=== PATIENT | male | born 1990 | race Caucasian/White ===

== ENCOUNTER 2024-10-30 18:10 | Outpatient (REF) | payer BC, SELFPAY ==
[2024-10-30 21:36] LABS: HCT 46.5 % (40.0-50.0); HGB 16.1 g/dL (13.5-17.5); MCH 32.2 pg (27.0-33.0); MCHC 34.6 % (32.0-36.0); MCV 93 fL (80-95); MPV 9.8 fL (8.0-11.0); Platelet Count 225 10^3/uL (130-400); RDW 11.9 % (11.8-14.1); RDW-SD 40.7 fL; WBC 7.41 10^3/uL (4.4-10.8)
[2024-10-30 22:02] LABS: ALT 48 U/L (16-63); AST 29 U/L (15-37); Albumin 4.4 g/dL (3.4-5.0); Alkaline Phosphatase 51 U/L (46-116); Anion Gap 5.6 mmol/L (3-11); BUN 14 mg/dL (7-18); Bilirubin, Total 0.51 mg/dL (0.2-1.0); CO2 29.4 mmol/L (21.0-32.0); CREATININE 1.2 mg/dL (0.70-1.30); Calcium 9.4 mg/dL (8.5-10.1); Chloride 108 mmol/L (98-107); Estimated GFR 81.89 (mL/min/1.73m2); Glucose 93 mg/dL (74-106); Sodium 143 mmol/L (136-145); Total Protein 7.7 g/dL (6.4-8.2)
[2024-10-30 22:20] LABS: Hemoglobin A1C 5.4 % (<5.7)
== END 2024-10-30 18:11 | disposition home or self-care (01) ==
LOC: NCHCN 18:10
PROVIDERS: PCP Internal Medicine; Visit Provider Nurse Practitioner Family
DX: R73.9 Hyperglycemia, unspecified (principal); Z51.81 Encounter for therapeutic drug level monitoring
CPT/HCPCS: 80053; 85027; 83036